=== PATIENT | female | born 1990 | race Caucasian/White ===

== ENCOUNTER 2019-05-08 12:09 | Observation (INO) ==
[2019-05-08] MEDS ORDERED: 0.9 % Sodium Chloride 1,000 ML IVC ONE (12:29)
--- NOTE | 2019-05-08 12:40 | Emergency Department Note ---
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 She says heart disease runs rampant in her family with her grandfather having his first heart attack in his 40s but there was no family history of dysrhythmias or sudden cardiac . Patient has never had this before. Patient does not smoke patient is not on any control patient has no exercise tolerance changes she had she had sharp pain in her chest which lasted for several minutes that she had these duration of fast heart rate. It did not radiate she said she felt a little short of breath hurts when she takes a deep breath and fatigue. Patient has no history of thromboembolic disease but does run in the family but apparently they seem to be provoked after an operation or procedure. On a monitored patient had a heart rate of 76 and regular she appears a little anxious but is feeling better but "not herself". Patient had a liter normal saline EKG screening labs including troponin and d-dimer chest x- ray PA and lateral urinalysis and urine . Disposition pending Pain Scale: 0 - Related Data Home Medications Medication Instructions Recorded Confirmed Biotin 5,000 mcg PO DAILY 03/31/19 03/31/19 Multivit-Min/Iron/Folic Acid/K 1 each PO DAILY 03/31/19 03/31/19 [Adults Multivitamin Tablet] Omeprazole [PriLOSEC] 20 mg PO DAILY 03/31/19 03/31/19 Previous Rx's Medication Instructions Recorded Phenazopyridine HCl [Pyridium] 200 mg PO TIDAC #10 tab 03/31/19 Sulfamethoxazole/Trimeth DS 1 each PO BID #14 tablet 03/31/19 [Bactrim DS] Naproxen [Naprosyn] 500 mg PO BID #20 tablet 04/04/19 Allergies Allergy/AdvReac Type Severity Reaction Status Date / Time Bee Pollen AdvReac Swelling Verified 03/31/19 16:40 of Lip/Tongue/Throat butorphanol [From Stadol] AdvReac Seizure Verified 03/31/19 16:40 codeine AdvReac Swelling Verified 03/31/19 16:40 of Lip/Tongue/Throat morphine AdvReac Swelling Verified 03/31/19 16:40 of Lip/Tongue/Throat silver nitrate AdvReac Hives Verified 03/31/19 16:40 Past Medical History - Past Medical History Medical history: Reports: no medical history, other Psychiatric history: Reports: anxiety 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 Negative negative troponin negative D dimer chest x-ray negative labs within normal limits however nurse showed me a rhythm strip 2 with what appears to be nonsustained V. tach for between 10-12 beats. Patient felt hot and flushed but it resolved spontaneously cardiology is been paged we will consult them admission is can be considered. Patient currently hemodynamically stable upset and concerned but relatively asymptomatic. Disposition pending Time: 13:30 Reevaluation #2: Case with news anchor Dr. Bailey. He agreed that he will consult the patient to admit to the hospitalists. They have been paged. Patient's own form. Admission disposition pending Time: 13:51 Vital Signs Temperature 97.7 F 05/08/19 12:13 Pulse Rate 71 05/08/19 12:13 Respiratory Rate 05/08/19 12:13 Blood Pressure 129/74 05/08/19 12:13 O2 Sat by Pulse Oximetry 98 05/08/19 12:13 Temperature 97.7 F 05/08/19 12:13 Pulse Rate 71 05/08/19 12:13 Respiratory Rate 05/08/19 12:13 Blood Pressure 129/74 05/08/19 12:13 O2 Sat by Pulse Oximetry 98 05/08/19 12:13 Oxygen Delivery Oxygen Delivery Room Air Medical Decision Making - Medical Records Medical records reviewed: Yes I reviewed the patient's medical records. - Lab Data Lab results reviewed: Yes I reviewed the patient's lab results. Result diagrams: 05/08/19 12:29 05/08/19 12:29 Lab Results 05/08/19 05/08/19 05/08/19 Range/Units 12:29 12:29 12:29 WBC 7.0 (4.3-11.1) K/mcL RBC 4.44 (3.82-4.97) M/mcL Hgb 13.5 (11.5-15.4) g/dL Hct 40.8 (35.3-44.9) % MCV 91.9 (83.0-100.0) fL MCH 30.4 (28.0-33.3) pg MCHC 33.1 (31.6-35.5) g/dL RDW 12.0 (11.5-14.5) % Plt Count 202 (140-400) K/mcL MPV 10.1 (9.4-12.4) fL Immature Gran % 0.1 (0-4) % Seg Neutrophils % 60.8 % Lymphocytes % 28.4 % Monocytes % 9.0 % Eosinophils % 1.3 % Basophils % 0.4 % Neutrophils # 4.3 (1.6-8.9) K/mcL Lymphocytes # 2.0 (0.6-4.6) K/mcL Monocytes # 0.6 (0.0-1.3) K/mcL Eosinophils # 0.1 (0.0-0.6) K/mcL Basophils # 0.0 (0.0-0.2) K/mcL D-Dimer < 215 (0-500) ng/mLFEU Sodium 138 (136-145) mEq/L Potassium 3.8 (3.5-5.1) mEq/L Chloride 107 (98-107) mEq/L Carbon Dioxide 25 (23-29) mEq/L BUN 16 (6-20) mg/dL Creatinine 1.12 (0.60-1.20) mg/dL Est GFR ( Amer) > 60 (> 60) Est GFR (Non-Af Amer) 58 L (> 60) BUN/Creatinine Ratio 14 (6-26) Glucose 91 (70-105) mg/dL Calculated Osmolality 287 (280-300) Calcium 9.1 (8.6-10.3) mg/dL Troponin I < 0.03 (< 0.04) ng/mL - Radiology Data Radiology results reviewed: Yes I reviewed the patient's radiology results. - EKG Data EKG #1 EKG attestation: Yes I reviewed and interpreted this EKG. EKG results narrative: Twelve-lead EKG interpreted without the benefit Cardiologic assistant refinery operator shows the following sinus rhythm at 73 bpm normal AK QRS and QT corrected. Nonspecific ST-T changes however no acute ischemic changes noted no old EKG available for comparison
[2019-05-08 12:48] LABS: Basophils % 0.4 %; Eosinophils # 0.1 K/mcL (0.0-0.6); Eosinophils % 1.3 %; Hematocrit 40.8 % (35.3-44.9); Hemoglobin 13.5 g/dL (11.5-15.4); Immature Granulocytes % 0.1 % (0-4); Lymphocytes % 28.4 %; Mean Corpuscular HGB Conc 33.1 g/dL (31.6-35.5); Mean Corpuscular Hemoglobin 30.4 pg (28.0-33.3); Mean Corpuscular Volume 91.9 fL (83.0-100.0); Mean Platelet Volume 10.1 fL (9.4-12.4); Monocytes # 0.6 K/mcL (0.0-1.3); Neutrophils # 4.3 K/mcL (1.6-8.9); Platelet Count 202 K/mcL (140-400); Red Blood Count 4.44 M/mcL (3.82-4.97); Segmented Neutrophils % 60.8 %
[2019-05-08 13:07] LABS: BUN/Creatinine Ratio 14 (6-26); Blood Urea Nitrogen 16 mg/dL (6-20); Calcium 9.1 mg/dL (8.6-10.3); Carbon Dioxide 25 mEq/L (23-29); Chloride 107 mEq/L (98-107); Glucose 91 mg/dL (70-105); Osmolality,Calculated 287 (280-300); Potassium 3.8 mEq/L (3.5-5.1); Sodium 138 mEq/L (136-145); eGFR For African Americans > 60 (> 60); eGFR For Non-African Americans 58 (> 60)
[2019-05-08 13:08] LABS: Troponin I < 0.03 ng/mL (< 0.04)
--- NOTE | 2019-05-08 14:07 | Internal Med History&Physical ---
Date of Encounter: 05/08/19 Time of Encounter: 14:29 Internal Medicine - H&P: HPI History of present illness: Ms. Alanis is a 28 year old female with history of Laura's thyroiditis presented to the ED due to palpitations and chest pressure. 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 She checked her pulse on pulse oximeter and it was 138 bpm. She was brought in for further monitoring. An EKG was NSR, troponin was negative, chest x-ray without acute process, and d-dimer was negative. In the ED telemetery showed 10 beats of nonsustained vtach which resolved. Family history is significant for grandfather with CA in 40s. She reports that a few years ago she had a stress test for episodes of palpitations occurring at night time. Currently she is in no acute distress. Past Med Surg Social Fam HX - Past Medical History Medical history: no medical history, other Additional medical history: BARRETTS ESOPHAGUS. HOSHIMOTOS Psychiatric history: anxiety - Past Surgical History Additional surgical history: Barriatric sx, nasal. BARRIATRIC SLEVE - Social History Smoking Status: Former smoker Smokeless Tobacco Status: No Alcohol use: rarely Drug use: none Internal Medicine - H&P: Meds Biotin 5,000 mcg PO DAILY 03/31/19 [History] Multivit-Min/Iron/Folic Acid/K [Adults Multivitamin Tablet] 1 each PO DAILY 03/31/19 [History] Omeprazole [PriLOSEC] 20 mg PO DAILY 03/31/19 [History] Phenazopyridine HCl [Pyridium] 200 mg PO TIDAC #10 tab 03/31/19 [Rx] Sulfamethoxazole/Trimeth DS [Bactrim DS] 1 each PO BID #14 tablet 03/31/19 [Rx] Naproxen [Naprosyn] 500 mg PO BID #20 tablet 04/04/19 [Rx] Allergy/AdvReac Type Severity Reaction Status Date / Time Bee Pollen AdvReac Swelling Verified 03/31/19 16:40 of Lip/Tongue/Throat butorphanol [From Stadol] AdvReac Seizure Verified 03/31/19 16:40 codeine AdvReac Swelling Verified 03/31/19 16:40 of Lip/Tongue/Throat morphine AdvReac Swelling Verified 03/31/19 16:40 of Lip/Tongue/Throat silver nitrate AdvReac Hives Verified 03/31/19 16:40 All Systems PM: A 10-system review of systems was performed and is negative for pertinent findings except as documented above in the HPI. - Constitutional Constitutional: excessive sweating, no chills, no fever(s), no night sweats - EENT Eyes: no change in vision, no discharge, no pain, no photophobia Ears: no ear discharge, no ear pain, no tinnitus Nose, mouth and throat: no dysphagia, no nasal discharge, no neck pain, no sore throat - Cardiovascular Cardiovascular ROS IM: chest pain, diaphoresis, dyspnea, lightheadedness, palpitations, no syncope - Respiratory Respiratory: dyspnea, no cough, no wheezing, no excessive phlegm production - Gastrointestinal Gastrointestinal: no abdominal pain, no diarrhea, no hematemesis, no hematochezia, no melena, no nausea, no vomiting - Genitourinary Genitourinary: no change in urinary stream, no dysuria, no flank pain, no hematuria - Musculoskeletal Musculoskeletal ROS IM: no numbness, no tingling - Integumentary Integumentary IM: no rash, no unusual bruising - Neurological Neurological ROS: no confusion, no convulsions, no focal weakness, no numbness, no tingling, no tremor(s) - Hematologic/Lymphatic Hematologic/Lymphatic: no easy bruising - Constitutional Vitals: Temp Pulse Resp BP Pulse Ox 97.7 F 71 19 129/74 98 05/08/19 12:13 05/08/19 12:13 05/08/19 12:13 05/08/19 12:13 05/08/19 12:13 General appearance: Present: A&O X 3 Exam: . - Head Head exam: Present: atraumatic, normocephalic - Eye Eye exam: Present: PERRL, conjuntiva pink, sclera anicteric Pupils: Present: PERRL - Neck Neck exam general surgery: Present: supple, trachea midline. Absent: lymphadenopathy - Respiratory Respiratory exam: Present: CTAB. Absent: accessory muscle use, rales, rhonchi, wheezes - Cardiovascular Cardiovascular exam: Present: RRR, +S1, +S2. Absent: diastolic murmur, gallop, rubs, systolic murmur - GI/Abdominal GI/Abdominal exam: Present: normal bowel sounds, soft, no peritoneal signs. Absent: distended, tenderness - Extremities Exam Extremities exam: Present: warm, radial pulses palpable and symmetrical. Absent: calf tenderness, cyanotic, pedal edema - Neurological Exam Neurological exam: Present: CN II-XII intact, oriented X3, no focal deficits. Absent: pronater drift, facial droop, speech deficit - Skin Skin exam: Present: dry, intact Internal Med - H&P Results - Labs CBC & Chem 7: 05/08/19 12:29 05/08/19 12:29 Labs: Short CBC 05/08/19 Range/Units 12:29 WBC 7.0 (4.3-11.1) K/mcL Hgb 13.5 (11.5-15.4) g/dL Hct 40.8 (35.3-44.9) % Plt Count 202 (140-400) K/mcL Neutrophils # 4.3 (1.6-8.9) K/mcL BMP 05/08/19 12:29 Sodium 138 Potassium 3.8 Chloride 107 Carbon Dioxide 25 BUN 16 Creatinine 1.12 Glucose 91 Calcium 9.1 Cardiac Enzymes 05/08/19 Range/Units 12:29 Troponin I < 0.03 (< 0.04) ng/mL - Impressions ITS Impressions Chest X-Ray 05/08/19 12:29 IMPRESSION: Unremarkable chest. D/ / Ahmet Zhu MD / Ahmet Zhu MD Interpreting Provider: Ahmet Zhu MD - Assessment and Plan (1) Nonsustained paroxysmal ventricular tachycardia Current Visit: Yes Status: Acute Assessment and plan: EKG was unremarkable but in ED there was 10 beat run of nonsustained vtach, d- dimer negative, initiral troponin negative, chest x-ray negative. 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 Last TSH done two months ago was normal. She has had episodes like these two years ago as well. Cardiology consulted, recommendations appreciated. (2) Laura's disease Current Visit: Yes Status: Acute Assessment and plan: Managed as outpatient. - Time Spent With Patient Total time spent is greater than 50% in coordination of care (as documented) at patient's floor/unit and/or counseling patient:
[2019-05-08] MEDS ORDERED: Naloxone 0.4 MG/ML INJ IVP PRN (14:19)
[2019-05-08 15:02] LABS: Bilirubin,Urine Small (Negative); Blood,Urine Negative (Negative); Clarity,Urine Cloudy (Clear); Color,Urine Yellow (Yellow); Glucose,Urine (UA) Normal (Normal); Ketones,Urine 80 mg/dL (Negative); Leukocyte Esterase,Urine Moderate (Negative); Nitrite,Urine Negative (Negative); PH,Urine 5.5 pH Units (5.0-8.0); Protein,Urine Trace mg/dL (Neg-Trace); Specific Gravity,Urine > 1.030 (1.010-1.025); Urobilinogen,Urine Normal (Normal)
[2019-05-08 15:03] LABS: Bacteria,Urine Moderate per hpf (None-Few); Squamous Epithelial Cell,Urine Many per lpf (None-Few); WBC,Urine 50-100 per hpf (0-3)
[2019-05-08 15:14] LABS: Thyroid Stimulating Hormone 1.102 mcIU/mL (0.340-5.600)
--- NOTE | 2019-05-08 15:28 | Cardiology Consult Note ---
Date of Encounter: 05/08/19 Time of Encounter: 15:20 Assessment and Plan (1) Nonsustained paroxysmal ventricular tachycardia Current Visit: Yes Status: Acute Long runs VT noted. Up to 45 beats long seen on rhythm strips. Recommend keeping defibrillation pads on patient. Continuous EKG to catch VT on 12 lead. Will consider adding bb if blood pressure improves. Keep potassium above 4.0 and mg above 2.0. TTE ordered. NPO after midnight for possible LHC for ischemic evaluation. Discussion w patient/family: The assessment and plan as outlined above was discussed with the patient and/or family members who expressed understanding and agreement. All questions were answered. Thank you for involving us in the care of your patient. Please call with any questions. History of Present Illness Consult date: 05/08/19 Requesting physician: Leandro Villanueva Consult reason: VT Chief complaint: palpitations, chest pain History of present illness: Ms. Alanis is a 28 year old female with past medical history significant for ghassan thyroiditis, gastric sleeve placed 06/2018 with 120 lb weight loss, and HLD who presented to the ED with palpitations and chest pain. 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 She checked her pulse and it was 130 bpm. Symptoms lasted for several minutes. After sitting down to rest she started to feel better. Symptoms then returned. At that time her structural engineering drafting officer walked her to the emergency room. WHile in the ED she was seen to have runs of Vt up to 45 beats long. She c/o palpitations on-going for one year and intermittent sharp chest pains. One year ago she completed a stress echocardiogram at the [facility]. She states that it was negative. She was noted to have RBBB and thickened septum during the study. We will order records. Past Med Surg Social Fam HX - Past Medical History Medical history: no medical history, other Additional medical history: BARRETTS ESOPHAGUS. HOSHIMOTOS Psychiatric history: anxiety - Past Surgical History Additional surgical history: Barriatric sx, nasal. BARRIATRIC SLEVE - Social History Smoking Status: Former smoker Smokeless Tobacco Status: No Alcohol use: rarely Drug use: none Medications and Allergies Biotin 5,000 mcg PO DAILY 03/31/19 [History] Multivit-Min/Iron/Folic Acid/K [Adults Multivitamin Tablet] 1 each PO DAILY 03/31/19 [History] Omeprazole [PriLOSEC] 20 mg PO DAILY 03/31/19 [History] Naproxen [Naprosyn] 500 mg PO BID #20 tablet 04/04/19 [Rx] Allergy/AdvReac Type Severity Reaction Status Date / Time Bee Pollen AdvReac Swelling Verified 03/31/19 16:40 of Lip/Tongue/Throat butorphanol [From Stadol] AdvReac Seizure Verified 03/31/19 16:40 codeine AdvReac Swelling Verified 03/31/19 16:40 of Lip/Tongue/Throat morphine AdvReac Swelling Verified 03/31/19 16:40 of Lip/Tongue/Throat silver nitrate AdvReac Hives Verified 03/31/19 16:40 All Systems Review: The remainder of the systems were reviewed and are negative Physical Examination Vital Signs, Last 4 Hours Temp Pulse Resp BP Pulse Ox 05/08/19 14:20 60 16 97/66 100 05/08/19 13:56 56 22 129/74 05/08/19 12:13 97.7 F 71 19 129/74 98 General: Conversant, No Apparent Distress HEENT: Atraumatic, Normocephaly, Mucus Membranes Moist Neck: No JVD, Normal carotid pulses Cardiac: Reg Rate and Rhythm, Normal S1 and S2, No Murmur Lungs: Normal Breath Sounds, No Wheeze, Rales, Rhonchi Neuro: Alert and responsive, No focal deficits noted Abdomen: Soft, Non-Tender Skin: No rashes noted on visualized skin Musculoskeletal: No Chest Wall Tenderness Extremities: No Clubbing, No Cyanosis, No Edema, Normal Pulses Results 05/08/19 12:29 05/08/19 12:29 Lab Results 05/08/19 05/08/19 05/08/19 12:29 12:29 12:29 WBC 7.0 Hgb 13.5 Hct 40.8 Plt Count 202 D-Dimer < 215 Sodium 138 Potassium 3.8 Chloride 107 Carbon Dioxide 25 BUN 16 Creatinine 1.12 Glucose 91 Calcium 9.1 Troponin I < 0.03 TSH 1.102 - EKG Interpretation EKG results cardiology: personally reviewed Consult Discharge Plan - Plan Referrals: Stacy Simmons, MICHELET [Primary Care Provider] -
[2019-05-09] MEDS: *HR* Heparin 5,000 UNIT/ML VIAL SQ SCH ×2 (05:03→17:52)
--- NOTE | 2019-05-09 10:47 | Event Note ---
Date of Encounter: 05/09/19 Time of Encounter: 10:46 - Cardiology Event Note Patient admitted with non-sustained VT. TTE pending. Plan for LHC today. Risks versus benefits of LHC explained to patient and family, who state understanding and agreeable to proceed. Further recs pending TTE. NO recurrence of VT noted overnight.
[2019-05-09] MEDS: Aspirin Enteric Coated 81 MG Tablet PO SCH (11:59)
--- NOTE | 2019-05-09 12:02 | Internal Med Progress Note ---
Hospitalist Progress Note - Encounter Date of Encounter: 05/09/19 Time of Encounter: 11:58 - Subjective Interval History: the patient was seen and examined at bedside. denies CP or SOB at rest reports dyspnea on excertion denies urinary symptoms plan for [facility] today - Exam Vitals: Temp Pulse Resp BP Pulse Ox 98.1 F 63 16 110/64 99 05/09/19 07:40 05/09/19 07:40 05/09/19 07:40 05/09/19 07:40 05/09/19 07:40 Exam: Physical examination: Gen.: Patient is alert and oriented, not in respiratory distress or pain HEENT: perrla , EOMI, no thyroid gland enlargement, no neck mass, supple neck Heart: S1 and S2 apolinar, normal sinus rhythm, no cardiac murmur no gallop rhythm Chest: Air entry equal bilaterally, clear chest, no wheezing, crackles or crepitation Abdomen: Soft nontender nondistended positive bowel sounds, no organomegaly Extremities: No pitting edema, peripheral pulses palpable, no cyanosis tenderness Neuro: Able to move all 4 limbs, no focal neurological deficit.. DVT Prophylaxis: heparin - Summary of Assessment and Plan Summary of Assessment and Plan: (1) Nonsustained paroxysmal ventricular tachycardia Current Visit: Yes Status: Acute Assessment and plan: EKG was unremarkable but in ED there was 10 beat run of nonsustained vtach, d- dimer negative, initiral troponin negative, chest x-ray negative. 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 TSH is WNL Cardiology consulted, plan for [facility] today TTE show ef 60% otherwise unremarkable (2) Laura's disease Current Visit: Yes Status: Acute Assessment and plan: Managed as outpatient. TSh 1.1 3- Pyuria: has no urinary symptoms patient states urine sample is not clean catch reorder UA today - Time Spent with Patient Total time spent is greater than 50% in coordination of care (as documented) at patient's floor/unit and/or counseling patient: Internal Medicine: Result - Labs CBC & Chem 7: 05/08/19 12:29 05/08/19 12:29 Labs: Short CBC 05/08/19 Range/Units 12:29 WBC 7.0 (4.3-11.1) K/mcL Hgb 13.5 (11.5-15.4) g/dL Hct 40.8 (35.3-44.9) % Plt Count 202 (140-400) K/mcL Neutrophils # 4.3 (1.6-8.9) K/mcL BMP 05/08/19 12:29 Sodium 138 Potassium 3.8 Chloride 107 Carbon Dioxide 25 BUN 16 Creatinine 1.12 Glucose 91 Calcium 9.1 Cardiac Enzymes 05/08/19 Range/Units 12:29 Troponin I < 0.03 (< 0.04) ng/mL Urine 05/08/19 Range/Units 14:37 Urine Color Yellow (Yellow) Urine Clarity Cloudy A (Clear) Urine pH 5.5 (5.0-8.0) pH Units Ur Specific [place] > 1.030 H (1.010-1.025) Urine Protein Trace (Neg-Trace) mg/dL Urine Glucose (UA) Normal (Normal) mg/dL - ABG Interpretation ABG results: PT/INR, D-dimer D-Dimer < 215 ng/mLFEU (0-500) 05/08/19 12:29 - Impressions Impressions Chest X-Ray 05/08/19 12:29 IMPRESSION: Unremarkable chest. D/ / Ahmet Zhu MD / Ahmet Zhu MD Interpreting Provider: Ahmet Zhu MD Echocardiogram 05/09/19 15:33 Impressions: LVEF 60%. Normal left ventricular diastolic function. Normal right ventricular structure and function. No significant valvular dysfunction. No pulmonary hypertension. Left Ventricular Wall Motion: Rest Echo Findings All wall segments showed normal motion. Findings: Study Quality * Technically adequate exam. ECG Findings * Sinus bradycardia. Left Ventricle * LVEF 60%. * Normal LV chamber size, wall thickness and function. * Normal left ventricular diastolic function. Right Ventricle * Normal right ventricular structure and function. Left Atrium * Normal left atrial size. Right Atrium * Normal right atrial size. Aortic Valve * No aortic regurgitation. * Trileaflet aortic valve. * No aortic stenosis. Mitral Valve * No mitral regurgitation. * Normal mitral valve structure. * No mitral stenosis. Tricuspid Valve * Normal tricuspid valve structure. * Trace tricuspid regurgitation. * Estimated RA pressure is 8 mmHg. Pulmonic Valve * Pulmonic valve is not well visualized. * No pulmonic stenosis. * No pulmonic regurgitation. Pulmonary Artery * Pulmonary artery not well visualized. Aorta * Normally sized aortic root. Pericardium * There is no pericardial effusion present. Interatrial Septum * No evidence of PFO by color Doppler. IVC * The IVC is not dilated. * < 50% respiratory change. Consult Discharge Plan - Plan Referrals: Stacy Simmons CODING DIRECTOR [Primary Care Provider] -
[2019-05-09 12:49] LABS: Hematocrit 40.5 % (35.3-44.9); Hemoglobin 13.4 g/dL (11.5-15.4); Mean Corpuscular HGB Conc 33.1 g/dL (31.6-35.5); Mean Corpuscular Hemoglobin 30.7 pg (28.0-33.3); Mean Corpuscular Volume 92.7 fL (83.0-100.0); Mean Platelet Volume 10.2 fL (9.4-12.4); Platelet Count 170 K/mcL (140-400); Red Blood Count 4.37 M/mcL (3.82-4.97); Red Cell Distribution Width 11.9 % (11.5-14.5); White Blood Count 5.9 K/mcL (4.3-11.1)
--- NOTE | 2019-05-09 12:59 | Pre-Sedation Evaluation ---
Pre-sedation evaluation - Pre-sedation checklist Date of procedure: 05/09/19 Procedure: Cath Recent Vitals: Last Vital Signs Temp 98.1 F 05/09/19 11:58 Pulse 57 05/09/19 11:58 Resp 16 05/09/19 11:58 BP 103/72 05/09/19 11:58 Pulse Ox 100 05/09/19 11:58 H&P (including ROS) documented in medical record: Yes Previous reaction to sedatives/anesthetics: Yes; explain in comment Dietary Status: NPO after Midnight Dentition: No loose teeth or bridges ASA Classification *see protocol: CLASS II-Mild systemic disease Plan of Care: Pt appropriate candidate for procedure/moderate/conscious sedation, Risks/benefits of procedure/sedation discussed w/ patient/family Cardiac Registry (Cardio Only) - Functional Capacity Functional Capacity: >=4 METS with symptoms - Clincal Frailty Scale Clinical Frailty Scale: Managing Well
[2019-05-09 13:09] LABS: Alanine Aminotransferase 10 Units/L (7-52); Albumin 4.1 g/dL (3.5-5.7); Albumin/Globulin Ratio 1.6 (1.1-2.2); Alkaline Phosphatase 96 Units/L (34-104); Aspartate Amino Transferase 14 Units/L (13-39); BUN/Creatinine Ratio 15 (6-26); Bilirubin,Total 0.6 mg/dL (0.3-1.0); Blood Urea Nitrogen 11 mg/dL (6-20); Calcium 9.1 mg/dL (8.6-10.3); Carbon Dioxide 25 mEq/L (23-29); Chloride 107 mEq/L (98-107); Globulin 2.6 g/dL (2.4-3.5); Glucose 81 mg/dL (70-105); Osmolality,Calculated 282 (280-300); Sodium 137 mEq/L (136-145); Total Protein 6.7 g/dL (6.4-8.9); eGFR For African Americans > 60 (> 60); eGFR For Non-African Americans > 60 (> 60)
[2019-05-09] MEDS ORDERED: *HR* Heparin 10,000 UNIT/10 ML VIAL ONE (15:07)
[2019-05-09] MEDS ORDERED: Verapamil 5 MG/2 ML VIAL ONE (15:07)
[2019-05-09] MEDS ORDERED: Heparin 1,000 UNITS/500 mL 500 ML ONE (15:07)
[2019-05-09] MEDS ORDERED: ISOVUE-370 200 ML INFUS..BTL ONE (15:08)
[2019-05-09] MEDS ORDERED: 0.9 % Sodium Chloride 2,000 ML ONE (15:08)
[2019-05-09] MEDS ORDERED: Nitroglycerin 1,000 MCG/10 ML VIAL IV ONE (15:08)
[2019-05-09] MEDS ORDERED: *HR* Midazolam HCl 2 MG/2 ML VIAL ONE ×3 (16:00→16:20)
[2019-05-09] MEDS ORDERED: *HR* FentaNYL (PF) 100 MCG/2 ML VIAL ONE (16:00)
--- NOTE | 2019-05-09 16:41 | Invasive Diagnostic Lab Proc ---
Name: Sulma Alanis Date of Study: 05/09/2019 Date: 1990 Ht: 65.0in Medical Record#: [id number] Age: 28 Wt: 207.23lb Gender: Female BSA: 2.01 Order #: [id number] BMI: 34.53 Physicians Procedure Physician: Sudheer Bailey MD, [facility] Referring MD: Referring MD: Staff Name Position Time In Caden Win RT (R) Scrub 04:04 PM Maegan Montero RN Monitor 04:04 PM Gray Joy RN Director Of Volunteer Services 04:05 PM Procedures Performed Procedure L HRT ARTERY/VENTRICLE ANGIO Pre-Procedure Checklist Informed consent is complete signed and on chart. H&P is on chart. ID band is on and ID verified with patient. Patient NPO for procedure The procedure was described for the patient and questions were answered. Blood Pressure: 129/62 ECG is on chart. Rhythm: NSR Plan of Care Patient will tolerate the procedure without complications. Adequate level of comfort will be maintained. Hemodynamics will remain stable Patient will recover from procedure without complications. Respiratory function will be maintained. Cardiac rhythm will remain stable. Patient temperature will be maintained. Patient and/or family have verbalized understanding of the procedure. Patient Education Chief Complaint/Reason for Test: Cardiac Cath Developmental Category: Adult (18-64 years) Developmentally Appropriate for Age: Yes Learning Barriers: None Education Needs: Procedure Education Method: Verbal Information Taught: Cardiac Cath Educational Evaluation: Able to repeat information Intravenous Access Time IV Size Location DC'd Fluid/Drip Rate Units RN 04:02 PM Started with 20g 1 1/4" Lt Antecubital 0.9NaCl ml/hr Allergies morphine codeine silver nitrate butorphanol Bee Pollen Vital Signs Time BP (mmHg) HR (bpm) O2 Sat. RR (bpm) LOC 04:02 PM 129 / 62 59 100 % 14 5 = Fully awake and oriented or at pre-proc level 04:03 PM 129 / 62 59 98 % 17 04:09 PM 127 / 57 60 99 % 14 04:13 PM 133 / 61 55 100 % 16 04:18 PM 114 / 54 71 92 % 19 04:23 PM 117 / 61 66 96 % 20 04:28 PM 120 / 60 50 % 16 Procedural Medications Time Medication Dose Units Method Given By 04:05 PM Oxygen 2 L/min nasal cannula Gray Joy RN 04:06 PM Versed 2 mg Intravenous Gray Joy RN 04:06 PM Fentanyl 50 mcg Intravenous Gray Joy RN 04:12 PM Versed 1 mg Intravenous Gray Joy RN 04:12 PM Lidocaine 2% 0.5 ml Subcutaneous Sudhere Bailey MD, [facility] 04:13 PM Versed 1 mg Intravenous Gray Joy RN 04:13 PM Fentanyl 25 mcg Intravenous Gray Joy RN 04:14 PM Heparin 4000 units Nitroglycerin 200 mcg Verapamil 2.5 mg Intraarterial Sudheer Bailey MD, [facility] ASA Classification: CLASS II- Mild systemic disease (i.e. well-controlled diabetes, hypertension, asthma, cigarette smoking) Barber Score Preprocedure Postprocedure Activity 2- Moves 4 extremities sustained head lift Activity 2- Moves 4 extremities sustained head lift Circulation 2- SBP +/= 20 points of pre-anesthetic level Circulation 2- SBP +/= 20 points of pre-anesthetic level Consciousness 2- Awake and alert oriented x 3 Consciousness 2- Awake and alert oriented x 3 O2 Saturation 2- Able to maintain O2 satruation of 92% on room air O2 Saturation 2- Able to maintain O2 satruation of 92% on room air Respiratory 2- Able to deep breathe and cough well Respiratory 2- Able to deep breathe and cough well Total Score 10 Total Score 10 Contrast Agent: Isovue Diagnostic Contrast: 64 ml Total Contrast: 64 ml Fluoro Dose: 17 mGy Procedure Log Time Note Enter By 04:01 PM CathStat 04:03 PM Vitals capture started with the following parameters, Patient=Adult, Interval=5 min, Initial Gunuvajv=940 mmHg, Deflation Rate=3 mmHg, Cuff placed on Right Arm 04:03 PM HR=59 bpm, JPDQ=766/62 mmhg, SpO2=98 %, Resp=17 B/min 04:04 PM Pt arrived to collaborating supervising physician 2 at 16:04 [email or web address] 04:04 PM Caden Win RT (R) Position: Scrub Time in: 16:04 [email or web address] 04:05 PM Maegan Montero RN Position: Monitor Time in: 16:04 [email or web address] 04:05 PM Gray Joy RN Position: Director Of Volunteer Services Time in: 16:05 [email or web address] 04:05 PM Patient charges- Angio tray pack, Navilyst 3mm J, Pulse Oximetry and ACIST tubing and transducer [email or web address] 04:05 PM Case Delayed No [email or web address] 04:05 PM Recorded ECG: HR=56 Condition=Condition 1 04:05 PM Hair removed from procedure site in holding area using clippers. Bilateral groin prepped with Chloraprep by Maegan Montero RN, then patient was draped. Skin intact. [email or web address] 04:05 PM Physician arrived 16:05 [email or web address] 04:05 PM Meet and greet completed [email or web address] 04:05 PM Sign in performed according to hospital policy. Informed consent was obtained. [email or web address] 04:05 PM ASA Class CLASS II- Mild systemic disease (i.e. well-controlled diabetes, hypertension, asthma, cigarette smoking) [email or web address] 04:05 PM Procedure start 16:05 [email or web address] 04:06 PM Time: 16:05 Oxygen on at 2 L/min per nasal cannula by Gray Joy RN [email or web address] 04:06 PM Time: 16:06 Versed 2 mg Intravenous Given by Gray Joy RN [email or web address] 04:06 PM Time: 16:06 Fentanyl 50 mcg Intravenous Given by Gray Joy RN [email or web address] 04:09 PM HR=60 bpm, UMID=195/57 mmhg, SpO2=99.0 %, Resp=14 B/min 04:12 PM Time: 16:12 Versed 1 mg Intravenous Given by Gray Joy RN [facility] 04:12 PM Time out was performed according to hospital policy. Conscious sedation and anesthesia was achieved (see medication log with in this report above) [email or web address] 04:12 PM Time: 16:12 0.5 ml Lidocaine 2% to right radial Subcutaneous [facility], [facility] 04:13 PM Access obtained by percutaneous puncture. 4Fr 10cm Terumo [place] sheath placed in right Radial artery. [id number] avis 04:13 PM Time: 16:13 Versed 1 mg Intravenous Given by Gray Joy RN [facility] 04:13 PM Time: 16:13 Fentanyl 25 mcg Intravenous Given by Gray Joy RN [facility] 04:13 PM HR=55 bpm, QKDF=005/61 mmhg, DrN1=352.0 %, Resp=16 B/min 04:14 PM Time: 16:14 Patient given 4,000 units Heparin, 200 mcg Nitroglycerin, and 2.5 mg Verapamil Intraarterial by Sudheer Bailey MD, [facility]. This is given to reduce risk of vessel spasm and thrombosis. [email or web address] 04:14 PM 5Fr TIG catheter inserted over the wire [facility] kmavis 04:15 PM 0.035 145cm Navilyst 3mmJ wire [id number] kmavis 04:16 PM Recorded Pressure: LV, HR=82, Condition=Condition 1 (Left Ventricle) LV 120/1/15 04:16 PM Catheter crossed the aortic valve and was selectively placed in the left ventricle. Pressures recorded on pullback for left heart catheterization. [email or web address] 04:16 PM Recorded Pressure: LV, Ao, HR=80, Condition=Condition 1 (Left Ventricle) LV 117/4/27, (Aorta) Ao 107/68/84 04:17 PM Bolus angiogram of left Ventricle complete: 10 ml/sec for a total of 20 mls kmavis 04:18 PM Catheter removed kmavis 04:18 PM 5Fr FL 4 catheter inserted over the wire [facility] kmavis 04:18 PM HR=71 bpm, YAWD=736/54 mmhg, SpO2=92.0 %, Resp=19 B/min 04:19 PM Recorded Pressure: Ao, HR=73, Condition=Condition 1 (Aorta) Ao 96/75/86 04:20 PM Catheter removed avis 04:20 PM 5Fr FR 4 catheter inserted over the wire [facility] kmavis 04:21 PM Recorded Pressure: Ao, HR=68, Condition=Condition 1 (Aorta) Ao 100/81/91 04:21 PM RCA angiography performed in multiple views. [email or web address] 04:22 PM Catheter removed kmavis 04:23 PM 5Fr RBL 3.5 catheter inserted over the wire [id number] kmavis 04:23 PM HR=66 bpm, CMRW=407/61 mmhg, SpO2=96.0 %, Resp=20 B/min 04:24 PM Recorded Pressure: Ao, HR=68, Condition=Condition 1 (Aorta) Ao 113/80/96 04:24 PM LCA angiography performed in multiple views. [email or web address] 04:26 PM Catheter removed kmavis 04:26 PM wire removed [email or web address] 04:27 PM Procedure completed at 16:27 05/09/2019 [email or web address] 04:27 PM Coronary Dominance: right [email or web address] 04:27 PM Did you address PAULETTE flow and Dominance? YesCoronary Dominance: right [email or web address] 04:28 PM Sign out completed: Radiation Dose 123.21 mGy, 17.3 Gy/cm2 Fluoro Time: 3.5 Isovue 370 - 200ml contrast 64 ml given by Sudheer Bailey MD, [facility]. Complications: None. 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 Sedation minutes 20. Cardiac Rehab Consult needed: No. Confirmed administered medications: Yes kmavis 04:28 PM Isovue 370 - 200ml,1 Bottle(s) used. kmavis 04:28 PM Arterial sheath pulled, Vasc Band closure device used and was Successful S/N. kmavis 04:28 PM Estimated Blood Loss: minimal kmavis 04:28 PM HR=50 bpm, WROQ=889/60 mmhg, Resp=16 B/min 04:28 PM 11 ml air in Vasc Band. kmavis 04:29 PM Estimated Blood Loss: minimal kmavis 04:29 PM Post Blood Pressure 120/60 kmavis 04:29 PM Information taught Cardiac Cath and Vasc Band [email or web address] 04:29 PM Education needs Procedure, Plan of Care, and Disease Process [email or web address] 04:29 PM Learning barriers :None kmavis 04:29 PM Education Methods Verbal kmavis 04:29 PM Education evaluation Able to repeat information kmavis 04:29 PM Site status No bleeding/ No Hematoma - Rt Arm as reported by Caden Win RT (R) at 16:29 kmavis 04:29 PM Opsite applied kmavis 04:31 PM Plavix, Effient or Brilinta given No kmavis 04:31 PM Delay to floor No kmavis 04:31 PM Family placed in consult room. kmavis 04:31 PM Complications: None kmavis 04:32 PM Vitals capture stopped. 04:34 PM Report given to RN Pt taken to 2NE Room #20. 16:34 kmavis 04:34 PM Patient out of room: 16:34 kmavis Complications Complication None None Hemodynamics Pressures Site Systolic/A Wave Diastolic/V Wave Mean LV 120 1 15 LV 117 4 27 AO 107 68 84 AO 96 75 86 AO 100 81 91 AO 113 80 96 Post Procedure Information Blood Pressure: 120/60 mmHg Post procedural instructions were given Closure Device Time Device Success/Fail 05/09/2019 4:31:00 PM Mechanical Compression Successful Site Checks Time Location Status Staff Sheath In? Note 04:29 PM Rt Arm No bleeding/ No Hematoma Caden Win RT (R) Pulses Time Site Pre-Procedure Post-Procedure Note 05/09/2019 4:02:00 PM Bilateral DP & PT 2+ 05/09/2019 4:02:00 PM Bilateral radial 2+ Updated by Yesy Garsia RT(R) on 05/09/2019 4:36:18 PM electronically signed on 05/09/2019 4:36:54 PM with status of Final
--- NOTE | 2019-05-09 16:54 | Event Note ---
Date of Encounter: 05/09/19 Time of Encounter: 16:00 - Cardiology Event Note Prelim [facility] Normal coronaries angiographically without anomalies. EF normal.
--- NOTE | 2019-05-09 17:40 | Electrocardiograph Report ---
[place] [facility] Test Date: 2019-05-08 Pat Name: Sulma Alanis Department: EXAM18 Room: 2NE20 Gender: F Tent Finisher: : 1990 Requested By: Leandro Villanueva Order Number: [id number] Reading MD: Rui Moss Measurements Intervals [place] Rate: 73 P: 21 CT: 143 QRS: -25 QRSD: 121 T: 28 QT: 402 QTc: 443 Interpretive Statements Sinus rhythm Nonspecific intraventricular conduction delay Borderline T abnormalities, anterior leads Electronically Signed On 05-09-2019 17:38:56 EDT by Rui Moss
--- NOTE | 2019-05-09 17:42 | Electrocardiograph Report ---
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
[2019-05-10 05:23] LABS: Hematocrit 38.2 % (35.3-44.9); Hemoglobin 12.7 g/dL (11.5-15.4); Mean Corpuscular HGB Conc 33.2 g/dL (31.6-35.5); Mean Corpuscular Hemoglobin 29.9 pg (28.0-33.3); Mean Corpuscular Volume 89.9 fL (83.0-100.0); Mean Platelet Volume 10.3 fL (9.4-12.4); Platelet Count 167 K/mcL (140-400); Red Blood Count 4.25 M/mcL (3.82-4.97); White Blood Count 6.6 K/mcL (4.3-11.1)
[2019-05-10 05:46] LABS: Alanine Aminotransferase 9 Units/L (7-52); Albumin 3.8 g/dL (3.5-5.7); Albumin/Globulin Ratio 1.7 (1.1-2.2); Alkaline Phosphatase 85 Units/L (34-104); Aspartate Amino Transferase 11 Units/L (13-39); BUN/Creatinine Ratio 17 (6-26); Bilirubin,Total 0.4 mg/dL (0.3-1.0); Blood Urea Nitrogen 12 mg/dL (6-20); Calcium 8.8 mg/dL (8.6-10.3); Carbon Dioxide 23 mEq/L (23-29); Chloride 108 mEq/L (98-107); Globulin 2.3 g/dL (2.4-3.5); Glucose 82 mg/dL (70-105); Magnesium 2.1 mg/dL (1.6-2.6); Osmolality,Calculated 285 (280-300); Phosphorous 4.1 mg/dL (2.7-4.5); Potassium 3.8 mEq/L (3.5-5.1); Sodium 138 mEq/L (136-145); Total Protein 6.1 g/dL (6.4-8.9); eGFR For African Americans > 60 (> 60); eGFR For Non-African Americans > 60 (> 60)
[2019-05-10] MEDS: *HR* Heparin 5,000 UNIT/ML VIAL SQ SCH (06:09)
[2019-05-10 07:28] VITALS: BP 103/64
[2019-05-10 08:03] LABS: Bilirubin,Urine Negative (Negative); Blood,Urine Negative (Negative); Clarity,Urine Clear (Clear); Color,Urine Yellow (Yellow); Glucose,Urine (UA) Normal (Normal); Ketones,Urine 15 mg/dL (Negative); Leukocyte Esterase,Urine Large (Negative); Nitrite,Urine Negative (Negative); Protein,Urine Negative (Neg-Trace); Specific Gravity,Urine > 1.030 (1.010-1.025); Urobilinogen,Urine Normal (Normal)
[2019-05-10 08:09] LABS: Bacteria,Urine Moderate per hpf (None-Few); Hyaline Casts,Urine Moderate per lpf (None-Few); RBC,Urine 0-3 per hpf (0-3); Squamous Epithelial Cell,Urine Many per lpf (None-Few); WBC,Urine 50-100 per hpf (0-3)
--- NOTE | 2019-05-10 08:59 | Internal Med Progress Note ---
Hospitalist Progress Note - Encounter Date of Encounter: 05/10/19 Time of Encounter: 08:56 - Subjective Interval History: the patient was seen and examine at bedside states developing palpitation on minimal activity no CP or SOB had LHC with patent coronaries check free T3 and free T4 on telemetry BP is soft - Exam Vitals: Temp Pulse Resp BP Pulse Ox 97.6 F 76 16 103/64 99 05/10/19 07:26 05/10/19 07:26 05/10/19 07:26 05/10/19 07:26 05/10/19 07:26 Exam: Physical examination: Gen.: Patient is alert and oriented, not in respiratory distress or pain HEENT: perrla , EOMI, no thyroid gland enlargement, no neck mass, supple neck Heart: S1 and S2 apolinar, normal sinus rhythm, no cardiac murmur no gallop rhythm Chest: Air entry equal bilaterally, clear chest, no wheezing, crackles or crepitation Abdomen: Soft nontender nondistended positive bowel sounds, no organomegaly Extremities: No pitting edema, peripheral pulses palpable, no cyanosis tenderness Neuro: Able to move all 4 limbs, no focal neurological deficit.. DVT Prophylaxis: heparin - Summary of Assessment and Plan Summary of Assessment and Plan: (1) Nonsustained paroxysmal ventricular tachycardia Current Visit: Yes Status: Acute Assessment and plan: EKG was unremarkable but in ED there was 10 beat run of nonsustained vtach, d-dimer negative, initiral troponin negative, chest x-ray negative. 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 TSH is WNL , check free T3 and free T4 LHC normal with patent coronaries still report palpitation on minimal activity Cardiology on board TTE show ef 60% otherwise unremarkable on telemetry (2) Laura's disease Current Visit: Yes Status: Acute Assessment and plan: Managed as outpatient. TSh 1.1 check free T3 and T4 3- Pyuria: has no urinary symptoms patient states urine sample is not clean catch urine culture negative - Time Spent with Patient Total time spent is greater than 50% in coordination of care (as documented) at patient's floor/unit and/or counseling patient: Internal Medicine: Result - Labs CBC & Chem 7: 05/10/19 04:38 05/10/19 04:38 Labs: Short CBC 05/09/19 05/10/19 Range/Units 12:36 04:38 WBC 5.9 6.6 (4.3-11.1) K/mcL Hgb 13.4 12.7 (11.5-15.4) g/dL Hct 40.5 38.2 (35.3-44.9) % Plt Count 170 167 (140-400) K/mcL BMP 05/09/19 05/10/19 12:36 04:38 Sodium 137 138 Potassium 4.0 3.8 Chloride 107 108 H Carbon Dioxide 25 23 BUN 11 12 Creatinine 0.73 0.70 Glucose 81 82 Calcium 9.1 8.8 Liver Function 05/09/19 05/10/19 Range/Units 12:36 04:38 Total Bilirubin 0.6 0.4 (0.3-1.0) mg/dL AST 14 11 L (13-39) Units/L ALT 10 9 (7-52) Units/L Alkaline Phosphatase 96 85 (34-104) Units/L Albumin 4.1 3.8 (3.5-5.7) g/dL Urine 05/10/19 Range/Units 07:47 Urine Color Yellow (Yellow) Urine Clarity Clear (Clear) Urine pH 6.0 (5.0-8.0) pH Units Ur Specific [place] > 1.030 H (1.010-1.025) Urine Protein Negative (Neg-Trace) mg/dL Urine Glucose (UA) Normal (Normal) mg/dL - ABG Interpretation ABG results: PT/INR, D-dimer D-Dimer < 215 ng/mLFEU (0-500) 05/08/19 12:29 - Impressions Impressions Echocardiogram 05/09/19 15:33 Impressions: LVEF 60%. Normal left ventricular diastolic function. Normal right ventricular structure and function. No significant valvular dysfunction. No pulmonary hypertension. Left Ventricular Wall Motion: Rest Echo Findings All wall segments showed normal motion. Findings: Study Quality * Technically adequate exam. ECG Findings * Sinus bradycardia. Left Ventricle * LVEF 60%. * Normal LV chamber size, wall thickness and function. * Normal left ventricular diastolic function. Right Ventricle * Normal right ventricular structure and function. Left Atrium * Normal left atrial size. Right Atrium * Normal right atrial size. Aortic Valve * No aortic regurgitation. * Trileaflet aortic valve. * No aortic stenosis. Mitral Valve * No mitral regurgitation. * Normal mitral valve structure. * No mitral stenosis. Tricuspid Valve * Normal tricuspid valve structure. * Trace tricuspid regurgitation. * Estimated RA pressure is 8 mmHg. Pulmonic Valve * Pulmonic valve is not well visualized. * No pulmonic stenosis. * No pulmonic regurgitation. Pulmonary Artery * Pulmonary artery not well visualized. Aorta * Normally sized aortic root. Pericardium * There is no pericardial effusion present. Interatrial Septum * No evidence of PFO by color Doppler. IVC * The IVC is not dilated. * < 50% respiratory change. Consult Discharge Plan - Plan Referrals: Stacy Simmons, SESSIONS CLERK [Primary Care Provider] -
[2019-05-10 09:44] LABS: Triiodothyronine (T3) Free 3.32 pg/mL (2.50-3.90)
[2019-05-10] MEDS: Aspirin Enteric Coated 81 MG Tablet PO SCH (09:54)
--- NOTE | 2019-05-10 12:24 | Cardiology Progress Note ---
Date of Encounter: 05/10/19 Time of Encounter: 12:23 Assessment and Plan (1) Nonsustained paroxysmal ventricular tachycardia Current Visit: Yes Status: Acute Per cardiology: -Admitted with palpitations, noted to have Long runs VT noted. Up to 45 beats lo ng seen on rhythm strips. -Keep potassium above 4.0 and mg above 2.0. -TTE normal. -LHC with normal coronaries. -No recurrence of NS VT noted. -Discussed with , recommend low dose BB. Monitor BP, HR, and symptoms closely. Recommend 2 week event monitor at discharge, ordered. -Recommend outpatient cardiac MRI. -Cardiology will sign off, will arrange close outpatietn follow up. Discussion w patient/family: The assessment and plan as outlined above was discussed with the patient and/or family members who expressed understanding and agreement. All questions were answered. Thank you for involving us in the care of your patient. Please call with any questions. Discussed and reviewed with Subjective Principal diagnosis: non-sustained VT Interval history: Patient reports heart racing with activity. Otherwise denies complaints. Objective Vital Signs Temperature 97.7 F 05/08/19 12:13 Pulse Rate 71 05/08/19 12:13 Respiratory Rate 19 05/08/19 12:13 Blood Pressure 129/74 05/08/19 12:13 O2 Sat by Pulse Oximetry 98 05/08/19 12:13 Temperature 97.6 F 05/10/19 07:26 Pulse Rate 76 05/10/19 07:26 Respiratory Rate 16 05/10/19 07:26 Blood Pressure 103/64 05/10/19 07:26 O2 Sat by Pulse Oximetry 99 05/10/19 07:26 Oxygen Delivery Oxygen Delivery Room Air General: Conversant, No Apparent Distress HEENT: Atraumatic, Normocephaly, Mucus Membranes Moist Neck: No JVD, Normal carotid pulses Cardiac: Reg Rate and Rhythm, Normal S1 and S2, No Murmur Lungs: Normal Breath Sounds, No Wheeze, Rales, Rhonchi Neuro: Alert and responsive, No focal deficits noted Abdomen: Soft, Non-Tender Skin: No rashes noted on visualized skin, Other (Right radial access site without ecchymosis or hematoma. ) Musculoskeletal: No Chest Wall Tenderness Extremities: No Clubbing, No Cyanosis, No Edema, Normal Pulses Results 05/10/19 04:38 05/10/19 04:38 Lab Results Active Medications Aspirin (Aspirin Ec) 81 mg PO DAILY [facility] Stop: 11/08/19 10:46 Last Admin: 05/10/19 09:54 Dose: 81 mg Documented by: Heparin Sodium (Porcine) (Heparin) 5,000 unit SQ Q12HCO [facility] Stop: 11/08/19 06:01 Last Admin: 05/10/19 06:09 Dose: 5,000 unit Documented by: Metoprolol Tartrate (Lopressor) 12.5 mg PO BID [facility] Stop: 11/09/19 10:18 Last Admin: 05/10/19 11:23 Dose: 12.5 mg Documented by: Naloxone HCl (Narcan) 0.4 mg IVP Q2MPRN PRN PRN Reason: SEE COMMENTS Stop: 11/07/19 14:20 Laboratory Tests 05/10/19 05/10/19 04:38 04:38 Hgb 12.7 Creatinine 0.70 - Imaging and Cardiology Chest Xray: report reviewed Echo: report reviewed - EKG Interpretation EKG results cardiology: other (Telemetry reviewed with average HR previous 12 hours noted to be 58, SB. Rare PVCS, PACs noted.) Consult Discharge Plan - Plan Referrals: Stacy Simmons, SOUNDSCRIBER MECHANIC [Primary Care Provider] -
--- NOTE | 2019-05-10 12:39 | Discharge Summary ---
Orders not resulted at time of discharge: Pending orders 05/09/19 10:43 CL Cardiac Catheterization [CL] Routine 05/10/19 07:47 Culture,Urine [RM] Routine 05/10/19 12:19 ECG event monitor 2 weeks [ECG] Routine Date of Encounter: 05/10/19 Time of Encounter: 12:36 - Discharge Diagnosis (1) Nonsustained paroxysmal ventricular tachycardia Priority: Primary Status: Acute Assessment and Plan: (1) Nonsustained paroxysmal ventricular tachycardia Current Visit: Yes Status: Acute Assessment and plan: EKG was unremarkable but in ED there was 10 beat run of nonsustained vtach, d- dimer negative, initiral troponin negative, chest x-ray negative. 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 TSH is WNL , check free T3 and free T4 LHC normal with patent coronaries still report palpitation on minimal activity Cardiology on board recommend small dose BB and 2 weeks event recorder and outpatient cardiac MRI TTE show ef 60% otherwise unremarkable on telemetry (2) Laura's disease Current Visit: Yes Status: Acute Assessment and plan: Managed as outpatient. TSh 1.1 serum free T3 and T4 WNL 3- Pyuria: has no urinary symptoms patient states urine sample is not clean catch urine culture negative Hospital course: Ms. 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 Senior Consultant recommend low-dose beta dianne and to closely monitor blood pr essure heart rate and symptoms and recommend 2 weeks event monitor at discharge and recommend outpatient cardiac MRI Close outpatient follow-up with crusher loader equipment operator - Time Spent with Patient Total time spent providing and/or coordinating discharge services: 32 min - Discharge Medications Prescriptions: New Metoprolol [Lopressor] 12.5 mg PO BID #15 tablet Continued Biotin 5,000 mcg PO DAILY Omeprazole [PriLOSEC] 20 mg PO DAILY Multivit-Min/Iron/Folic Acid/K [Adults Multivitamin Tablet] 1 each PO DAILY Discontinued Naproxen [Naprosyn] 500 mg PO BID #20 tablet Home Medications: Biotin 5,000 mcg PO DAILY 03/31/19 [History] Multivit-Min/Iron/Folic Acid/K [Adults Multivitamin Tablet] 1 each PO DAILY 03/31/19 [History] Omeprazole [PriLOSEC] 20 mg PO DAILY 03/31/19 [History] Metoprolol [Lopressor] 12.5 mg PO BID #15 tablet 05/10/19 [Rx] Allergies/Adverse Reactions: Allergy/AdvReac Type Severity Reaction Status Date / Time Bee Pollen AdvReac Swelling Verified 05/09/19 16:56 of Lip/Tongue/Throat butorphanol [From Stadol] AdvReac Seizure Verified 05/09/19 16:56 codeine AdvReac Swelling Verified 05/09/19 16:56 of Lip/Tongue/Throat morphine AdvReac Swelling Verified 05/09/19 16:56 of Lip/Tongue/Throat silver nitrate AdvReac Hives Verified 05/09/19 16:56 Date of admission: 05/08/19 17:16 Primary care physician: Stacy Simmons Consults: 05/08/19 13:31 Consult to Cardiology [CONS] Stat Comment: Consulting Provider: Cardiology Mary Reason for Consult: Unsustained paroxysmal ventricular tachycardia Time Notified: 13:31 Call Completed: Yes 05/08/19 18:31 Consult to Pastoral Services [CONS] Routine Comment: - Constitutional Vitals: Temp Pulse Resp BP Pulse Ox 97.6 F 76 16 103/64 99 05/10/19 07:26 05/10/19 07:26 05/10/19 07:26 05/10/19 07:26 05/10/19 07:26 General appearance: Present: A&O X 3 Exam: Physical examination: Gen.: Patient is alert and oriented, not in respiratory distress or pain HEENT: perrla , EOMI, no thyroid gland enlargement, no neck mass, supple neck Heart: S1 and S2 apolinar, normal sinus rhythm, no cardiac murmur no gallop rhythm Chest: Air entry equal bilaterally, clear chest, no wheezing, crackles or crepitation Abdomen: Soft nontender nondistended positive bowel sounds, no organomegaly Extremities: No pitting edema, peripheral pulses palpable, no cyanosis tenderness Neuro: Able to move all 4 limbs, no focal neurological deficit.. - Patient Status Disposition: Home, Self-Care Condition: Good - Discharge Instructions Follow Up With: Stacy Simmons CNP [Primary Care Provider] - Additional Instructions: follow up with cardiology in 1 week
== END 2019-05-10 13:56 | disposition home or self-care (01) ==
LOC: EMEROOARM 12:09 → 2NENU 12:09
PROVIDERS: ADMIT Student in an Organized Health Care Education/Training Program; ATTEND Student in an Organized Health Care Education/Training Program